=== PATIENT | female | born 1995 | race Caucasian/White ===

== ENCOUNTER 2017-10-27 16:00 | Inpatient (IN) | END 2017-10-28 14:15 | disposition home or self-care (01) | DRG 781 ==

== ENCOUNTER 2017-11-28 07:57 | Outpatient (CLI) | END 2017-11-28 11:00 | disposition home or self-care (01) ==

== ENCOUNTER 2017-12-16 10:32 | Inpatient (IN) | END 2017-12-19 19:05 | disposition home or self-care (01) | DRG 775 ==